=== PATIENT | male | born 1935 | race Two or more races ===

== ENCOUNTER → 2018-03-27 | Outpatient (CLI) | payer MEDICARE, MEDICAID ==
[~2018-03-27] MED LIST: ALLO100T30 PO; AMLO10TA6 PO; ASPI-496 PO; CALC1TAB59 PO; DIPH1TAB6 PO; DOXY100T PO; LINA5TAB PO; LISI-167 PO; MAGNESIUM DR64 MG PO; METO-99 PO; OMEP-110 PO; POTA20PA31 PO; SIMV40TA3 PO
== END | disposition home or self-care (01) ==
LOC: EDSTATUS 09:15 → RAD 09:46
PROVIDERS: ATTEND Internal Medicine Nephrology
DX: N26.1 Atrophy of kidney (terminal) (principal); N18.3 Chronic kidney disease, stage 3 (moderate); E11.29 Type 2 diabetes mellitus with other diabetic kidney complication; R80.9 Proteinuria, unspecified; J43.9 Emphysema, unspecified
CPT/HCPCS: 76770

== ENCOUNTER 2019-10-29 12:39 | Outpatient (CLI) | payer MEDICARE, MEDICAID ==
[~2019-10-29 12:39] MED LIST changes: -AMLO10TA6 PO; +AMLO10TA8 PO; +SIMV40TA20 PO; -SIMV40TA3 PO
== END 2019-10-29 23:59 | disposition home or self-care (01) ==
LOC: RAD 12:39
PROVIDERS: ATTEND Nurse Practitioner Family
DX: R91.1 Solitary pulmonary nodule (principal); M85.80 Other specified disorders of bone density and structure, unspecified site; I51.7 Cardiomegaly; I70.0 Atherosclerosis of aorta
CPT/HCPCS: 71250